=== PATIENT | female | born 1955 | race African-American/Black ===

== ENCOUNTER 2016-12-12 21:49 | Emergency (ER) | payer OTHER ==
[~2016-12-12 21:49] MED LIST: 1-ME1LIQ PO; CITA20 PO; CLON0.2T PO; CYCL5TAB PO; GABA100C4 PO; LORTA5 PO; METO25 PO; PROM25SU8 PO
[2016-12-12 21:51] VITALS: BP 158/119; PULSE 98; RESP 14; TEMP 99.1; O2SAT 96
[2016-12-12 23:35] VITALS: PULSE 89; RESP 14; O2SAT 96
[2016-12-12] MEDS ORDERED: CYCL5TAB PO (23:41)
[2016-12-12] MEDS ORDERED: AMLO10TA2 PO (23:41)
[2016-12-12] MEDS ORDERED: METO25TA3 PO (23:41)
[2016-12-12] MEDS ORDERED: CLON0.2T PO (23:41)
[2016-12-12] MEDS ORDERED: GABA100C4 PO (23:41)
[2016-12-12] MEDS ORDERED: CELE20TA PO (23:45)
[2016-12-12] MEDS ORDERED: triamcinolone cream TOPICAL (23:45)
[2016-12-12] MEDS ORDERED: SIMV20TA PO (23:45)
[2016-12-12] MEDS ORDERED: cloNIDine HCL 0.1 MG TAB PO ONE (23:45)
[2016-12-12 23:46] VITALS: BP 157/114; PULSE 77; RESP 18; O2SAT 96
--- NOTE | 2016-12-12 23:53 | PD ---
HPI Chief Complaint: Skin Problem Time Seen by Provider: 23:28 Travel History International Travel<30 days: No Contact w/Intl Traveler<30days: No Traveled to known affect area: No History of Present Illness HPI 61-year-old female states over the past couple weeks she's been itching all over. She states she will intermittently get red blotches to her skin. She states her primary advised her to come to the emergency to get checked out and get blood work. She denies other concurrent complaints. She states that everything going on she took her blood pressure medication late and just took it 2 hours ago. She states she took her clonidine, metoprolol and amlodipine. She denies other concurrent complaints. She denies any new products. Quality is itchy. Severity is all over. Duration is couple of weeks. PFSH Past Medical History Arthritis: No Asthma: No Autoimmune Disease: No Anxiety: No Depression: No Heart Rhythm Problems: No Cancer: No Cardiovascular Problems: Yes High Cholesterol: No Chest Pain: No Congestive Heart Failure: No COPD: No Cerebrovascular Accident: No Diabetes: No Diminished Hearing: No GERD: No Genitourinary: Yes Hiatal Hernia: No Hypertension: Yes Immune Disorder: No Medical other: Yes (right kidney removed due to cancer) Musculoskeletal: No Neurologic: Yes Psychiatric: No Reproductive: No Respiratory: No Immunizations Current: Yes Migraines: No Seizures: No Sleep Apnea: No Thyroid Disease: No Ulcer: No Tetanus Vaccination: Unknown Influenza Vaccination: No : 3 Para: 3 Past Surgical History Section: Yes (X3) Genitourinary Surgery: Yes (HERNIA REPAIR) Gynecologic Surgery: Yes (C SECTION X 3) Pacemaker: No Other Surgery: Yes (right kidney removed 2011) Social History Alcohol Use: No Tobacco Use: No Substance Use: No Allergies-Medications (Allergen,Severity, Reaction): Coded Allergies: Hydralazine (Verified Allergy, Severe, HYSTERIA, 03/30/15) Vicodin (Verified Allergy, Severe, HALLUCINATION, 03/30/15) Reported Meds & Prescriptions Reported Meds & Active Scripts Active Reported [triamcinolone cream] 2 Applic TOPICAL BID Simvastatin 20 Mg Tab 20 Mg PO DAILY Celexa (Citalopram Hydrobromide) 20 Mg Tab 20 Mg PO DAILY Clonidine (Clonidine HCl) 0.2 Mg Tab 0.2 Mg PO BID Amlodipine (Amlodipine Besylate) 10 Mg Tab 10 Mg PO DAILY Flexeril (Cyclobenzaprine HCl) 5 Mg Tab 5 Mg PO TID Metoprolol Tartrate 25 Mg Tab 25 Mg PO DAILY Gabapentin 100 Mg Cap 100 Mg PO DAILY Review of Systems Except as stated in HPI: all other systems reviewed are Neg Physical Exam Narrative GENERAL: Well-nourished, well-developed patient. SKIN: Warm and dry. Intermittent subcentimeter red lesions noted that look like minor insect bites without underlying abscess or crepitus across arms and upper back HEAD: Normocephalic and atraumatic. EYES: No injection or drainage. ENT: No nasal drainage noted. No uvula edema NECK: Supple, trachea midline. CARDIOVASCULAR: Regular rate and rhythm RESPIRATORY: Breath sounds equal bilaterally. No accessory muscle use. GASTROINTESTINAL: Abdomen soft, non-tender, nondistended. EXTREMITIES: No edema. NEUROLOGICAL: Awake and alert. Motor and sensory grossly within normal limits. Normal speech Data Data Last Documented VS Vital Signs Date Time Temp Pulse Resp B/P Pulse Ox O2 Delivery O2 Flow Rate FiO2 12/12/16 23:46 77 18 157/114 96 Room Air 12/12/16 21:51 99.1 Orders Complete Blood Count With Diff (12/12/16 23:40) Basic Metabolic Panel (Bmp) (12/12/16 23:40) Iv Access Insert/Monitor (12/12/16 23:40) Clonidine (Catapres) (12/12/16 23:45) Labs Laboratory Tests Test 12/12/16 23:52 White Blood Count 8.5 TH/MM3 Red Blood Count 4.84 MIL/MM3 Hemoglobin 14.7 GM/DL Hematocrit 43.3 % Mean Corpuscular Volume 89.4 FL Mean Corpuscular Hemoglobin 30.3 PG Mean Corpuscular Hemoglobin 33.8 % Concent Red Cell Distribution Width 14.0 % Platelet Count 170 TH/MM3 Mean Platelet Volume 8.4 FL Neutrophils (%) (Auto) 54.0 % Lymphocytes (%) (Auto) 29.4 % Monocytes (%) (Auto) 9.4 % Eosinophils (%) (Auto) 6.7 % Basophils (%) (Auto) 0.5 % Neutrophils # (Auto) 4.6 TH/MM3 Lymphocytes # (Auto) 2.5 TH/MM3 Monocytes # (Auto) 0.8 TH/MM3 Eosinophils # (Auto) 0.6 TH/MM3 Basophils # (Auto) 0.0 TH/MM3 CBC Comment DIFF FINAL Differential Comment Sodium Level 143 MEQ/L Potassium Level 3.6 MEQ/L Chloride Level 109 MEQ/L Carbon Dioxide Level 30.2 MEQ/L Anion Gap 4 MEQ/L Blood Urea Nitrogen 17 MG/DL Creatinine 2.21 MG/DL Estimat Glomerular Filtration 27 ML/MIN Rate Random Glucose 175 MG/DL Calcium Level 9.1 MG/DL [facility] Medical Decision Making Medical Screen Exam Complete: Yes Emergency Medical Condition: Yes Medical Record Reviewed: Yes (past history confirmed) Interpretation(s) CBC & BMP Diagram 12/12/16 23:52 Creatinine at upper limits of baseline Differential Diagnosis Bug bite, allergic reaction, hypertensive urgency, medication effect Narrative Course Will check blood work and dose with clonidine and reevaluate. Blood work shows no elevation in white count, electrolytes are normal, blood pressure has improved 152/102 with additional clonidine. She can follow with her primary care physician and keep a blood pressure log. She continues over- the-counter antipyretics. No concurrent infection. No indication for steroids.Patient denies any new complaints, all questions answered. Patient knows that follow up is incumbent on them and to return to the emergency room immediately if new or worsening symptoms develop. Patient given strict return precautions, vitals reviewed and are normal, agrees to further workup as an outpatient. Diagnosis Primary Impression: Rash Additional Impression: Hypertension, uncontrolled Patient Instructions: General Instructions Additional Instructions: keep blood pressure log, follow with primary, return as needed Med/Other Pt SpecificInfo: No Change to Meds Disposition: 01 DISCHARGE HOME Condition: Stable Tamar Atkinson MD Dec 12, 2016 23:53
[2016-12-13 00:14] LABS: AUTOMATED NEUTROPHIL # 4.6 TH/MM3 (1.8-7.7); BASOPHIL % 0.5 % (0.0-2.0); EOSINOPHIL # 0.6 TH/MM3 (0-0.4); EOSINOPHIL % 6.7 % (0.0-4.0); HEMATOCRIT 43.3 % (35.0-46.0); HEMO FLAGS DIFF FINAL; LYMPH % 29.4 % (9.0-44.0); LYMPHOCYTE # 2.5 TH/MM3 (1.0-4.8); MEAN CELL VOLUME 89.4 FL (80.0-100.0); MEAN CORPUSCULAR HEMOGLOBIN 30.3 PG (27.0-34.0); MEAN CORPUSCULAR HGB CONC 33.8 % (32.0-36.0); MONO % 9.4 % (0.0-8.0); PLATELET COUNT 170 TH/MM3 (150-450); RED BLOOD COUNT 4.84 MIL/MM3 (4.00-5.30); WHITE BLOOD COUNT 8.5 TH/MM3 (4.0-11.0)
[2016-12-13 00:31] LABS: BICARBONATE 30.2 MEQ/L (21.0-32.0); POTASSIUM 3.6 MEQ/L (3.5-5.1)
[2016-12-13 00:46] VITALS: BP 152/102; PULSE 72; RESP 18; O2SAT 97
[2016-12-13] MEDS ORDERED: TRIA.025%T TOPICAL (10:47)
== END 2016-12-13 01:07 | disposition home or self-care (01) ==
LOC: NEPE 21:49
DX: R21 Rash and other nonspecific skin eruption (principal); I10 Essential (primary) hypertension
CPT/HCPCS: 80048; 85025; 99283